=== PATIENT | male | born 1960 | race Caucasian/White ===

== ENCOUNTER → 2018-04-09 | Day surgery (SDC) | payer SELFPAY ==
[~2018-04-09] MED LIST: ATROPINE SULFATE 0.1 MG/ML 10ML SYR ONE; HEPARIN SOD (PORCINE) 1000 UNIT/ML 30ML ONE; HEPARIN SOD/SOD CHLORIDE 2,000 ML ONE; IOPAMIDOL 370 MG/ML 200 ML INFUS..BTL INJ ONE; LIDOCAINE HCL 2% LOCAL 20 ML VIAL ONE; NITROGLYCERIN/D5W 200 MCG/ML 250 ML ONE; SODIUM CHLORIDE 0.9% 1000ML 1,000 ML ONE
[2018-04-09 18:57] LABS: BASOPHILS % 0.6 % (0.0-1.0); EOSINOPHILS # (AUTO) 0.1 (0.0-0.4); EOSINOPHILS % 1.2 % (0.0-6.0); HEMATOCRIT 40.9 % (38.2-49.6); HEMOGLOBIN 13.6 g/dL (14.0-18.0); LYMPHOCYTES # (AUTO) 2.3 (1.0-3.2); LYMPHOCYTES % 33.3 % (18.0-39.1); MEAN CORPUSCULAR HEMOGLOBIN 29.2 pg (28-32); MEAN CORPUSCULAR HGB CONC 33.3 g/dL (31-35); MEAN CORPUSCULAR VOLUME 87.8 fL (81-99); MONOCYTES # (AUTO) 0.6 (0.2-0.8); MONOCYTES % 8.7 % (4.4-11.3); NEUTROPHILS # (AUTO) 3.8 (2.1-6.9); NEUTROPHILS % 55.9 % (38.7-80.0); PLATELET COUNT 238 x10e3/uL (140-360); RED BLOOD COUNT 4.66 x10e6/uL (4.3-5.7); RED CELL DISTRIBUTION WIDTH 12.3 % (11.7-14.4)
[2018-04-09 19:09] LABS: INR 4.39; PROTHROMBIN TIME 39.4 seconds (11.9-14.5)
[2018-04-09 19:17] LABS: ANION GAP 13.6 mmol/L (8-16); BLOOD UREA NITROGEN 17 mg/dL (7-26); BUN/CREATININE RATIO 21 (6-25); CALCIUM 9.3 mg/dL (8.4-10.2); CARBON DIOXIDE 26 mmol/L (22-29); CHLORIDE 101 mmol/L (98-107); CHOL/HDL RATIO 3.4 (3.9-4.7); CHOLESTEROL 175 MD/DL (0-199); EST GLOMERULAR FILTRATION RATE > 60 ML/MIN (60-); GLUCOSE 86 mg/dL (74-118); HDL CHOLESTEROL 51 MG/DL (40-60); LDL CHOLESTEROL 106 MG/DL (60-130); POTASSIUM 3.6 mmol/L (3.5-5.1); SODIUM 137 mmol/L (136-145); TRIGLYCERIDES 92 MG/DL (0-149)
--- NOTE | 2018-04-09 19:29 | History and Physical ---
CHIEF COMPLAINT: Crescendo chest pain and palpitations. 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 At different various times on aspirin 325 mg daily, not on other thrombolic preventive medications, per his report. He has noted lately episodes of increasing frequency, duration and intensity of chest discomfort, which is elicited by emotional stress as well as physical exertion. At times this has been related with episodes of palpitations, and he himself documented episodes of atrial fibrillation at the time. He has noted symptoms to worsen within the last 2 weeks and presents for evaluation of his unstable symptoms. Currently he is chest pain free and on EKG in sinus rhythm, nonspecific repolarization abnormalities observed. REVIEW OF SYSTEMS: Twelve systems reviewed and negative except for as noted above. ALLERGIES: NO KNOWN DRUG ALLERGIES. PAST MEDICAL HISTORY: Hypertension and paroxysmal atrial fibrillation reported. SOCIAL HISTORY: Negative for smoking, alcohol or drugs. FAMILY HISTORY: Noncontributory. He has good family support. PHYSICAL EXAMINATION VITAL SIGNS: Heart rate 54, on telemetry in sinus rhythm, blood pressure 143/79, O2 sat 99% on room air. Respiratory rate 18. GENERAL: In no acute distress, alert, active. NECK: No JVD, no carotid bruits. CHEST: Clear to auscultation. CARDIOVASCULAR: Regular rate and rhythm. Normal S1 and S2. No S3, no S4. No murmurs or rubs. ABDOMEN: Soft and nontender, nondistended. EXTREMITIES: No cyanosis, clubbing or edema. Normal Alek's test. Palpable 2+ pulses to bilateral lower extremities. MEDICATIONS: Reviewed. STUDIES: Discussed per report, recent lab work within one year was unremarkable. ASSESSMENT 1. Unstable angina. 2. Paroxysmal atrial fibrillation. 3. Hypertension. RECOMMENDATIONS: Discussed indications, alternatives, risks and benefits for coronary angiography and possible coronary intervention. Alternatives discussed included absolute myocardial perfusion PET scan versus SPECT myocardial perfusion stress test. Given unstable crescendo symptoms, Marcio prefers to proceed with coronary angiography. Will schedule expeditedly. Further recommendations to follow. Job#: [id number]
[2018-04-09 19:41] LABS: INR 1.16; PROTHROMBIN TIME 13.9 seconds (11.9-14.5)
[2018-04-09 19:48] LABS: BILIRUBIN,DIRECT 0.4 mg/dL (0.0-0.5)
[2018-04-09 19:50] VITALS: BP 145/81
[2018-04-09 19:55] VITALS: BP 146/76
[2018-04-09 20:08] LABS: THYROID STIMULATING HORMONE 0.924 uIU/mL (0.350-4.940)
[2018-04-09 20:10] VITALS: BP 127/80
[2018-04-09 20:25] VITALS: BP 134/86
[2018-04-09 20:35] VITALS: BP 133/76
--- NOTE | 2018-04-10 00:35 | Discharge Summary ---
DATE OF SERVICE: April 09, 2018 ADMITTING DIAGNOSES: 1. Unstable angina. 2. Reported history of paroxysmal atrial fibrillation. 3. Hypertension. DISCHARGE DIAGNOSES: Atypical chest pain and palpitations in the setting of reported atrial fibrillation and borderline blood pressure reads with no significant obstructive coronary artery disease on catheterization. CONDITION UPON DISCHARGE: Fair, improved. Discharged to home for self care. Restrictions, post cath site precautions discussed. MEDICATIONS UPON DISCHARGE: Please see medication reconciliation form. For medications at home, please see medication reconciliation form, which includes: 1. Metoprolol succinate 25 mg tablet, half a tablet every day. 2. Aspirin 325 mg daily. 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 Cardiac catheterization was remarkable for no significant obstructive coronary artery disease, preserved left ventricular systolic function, and no gradient across the aortic valve. He remained in normal sinus rhythm throughout the study. He reports, however, prior episodes of paroxysmal atrial fibrillation, which he has noted on previous telemetry strips, for which he is taking aspirin 325 mg daily. He reports systolic blood pressure mainly in the 120s to low 130s, while in the hospital blood pressure was in the 130s to 140s, at home blood pressure log has been discussed and advised. Recommendations as outpatient include obtain echocardiogram, obtain Holter or laboratory monitor for further evaluation. Resting heart rate in the low 60s to high 50s, however, does go up with activity. Discussed alternatives for management of confirmed atrial fibrillation, consider PVI versus antiarrhythmics. Start with low-dose beta yudith. Advise on echo. Labs ordered and discussed. Follow up in office in 4 weeks. EDSON ULRICH MD Job#: [id number] DR MCCORMACK
== END | disposition home or self-care (01) ==
LOC: CATH LAB 17:43
PROVIDERS: ATTEND Internal Medicine Cardiovascular Disease
DX: I20.0 Unstable angina (principal); I48.0 Paroxysmal atrial fibrillation; I10 Essential (primary) hypertension; Z79.82 Long term (current) use of aspirin
CPT/HCPCS: 36415; 80048; 80061; 80076; 83036; 84443; 85025; 85610; 93458; C1769; C1887; J1644; J2001; J7030; Q9967

== ENCOUNTER → 2020-10-16 | Outpatient (CLI) | payer OTHER ==
[~2020-10-16] MED LIST changes: -ATROPINE SULFATE 0.1 MG/ML 10ML SYR ONE; +COVID-19 VACC, MRNA(MODERNA)/PF 100 MCG/0.5 ML VIAL IM ONE; -HEPARIN SOD (PORCINE) 1000 UNIT/ML 30ML ONE; -HEPARIN SOD/SOD CHLORIDE 2,000 ML ONE; -IOPAMIDOL 370 MG/ML 200 ML INFUS..BTL INJ ONE; -LIDOCAINE HCL 2% LOCAL 20 ML VIAL ONE; -NITROGLYCERIN/D5W 200 MCG/ML 250 ML ONE; -SODIUM CHLORIDE 0.9% 1000ML 1,000 ML ONE
== END ==
LOC: VACCPMC 17:00
DX: Z23 Encounter for immunization (principal); Z20.828 Contact with and (suspected) exposure to other viral communicable diseases

== ENCOUNTER → 2020-11-19 | Outpatient (CLI) | payer OTHER | LOC: VACCPMC 11:35 | DX: Z23 Encounter for immunization (principal); Z20.822 Contact with and (suspected) exposure to COVID-19 ==

== ENCOUNTER → 2024-08-19 | Day surgery (SDC) | payer BC ==
[~2024-08-19] MED LIST changes: +ACETAMINOPHEN 1000 MG/100 ML 100 ML IV ONE; +BUPIVACAINE HCL 0.5% INJ 30 ML VIAL INJ ONE; -COVID-19 VACC, MRNA(MODERNA)/PF 100 MCG/0.5 ML VIAL IM ONE; +HYDROCODON-ACE1 EA11 PO; +METOPROLOL SUCC25 MG PO; +MUPIROCIN 2% OINT 22 GM TUBE ONE
[2024-08-19] MEDS: LACTATED RINGER'S 1,000 ML ONE (06:45)
[2024-08-19 09:01] VITALS: TEMP 97
[2024-08-19] MEDS: HYDROCODONE/APAP 7.5MG-325MG 1 EA TAB ONE (09:50)
[2024-08-19 10:00] VITALS: BP 145/86; PULSE 58; RESP 16; O2SAT 100
== END | disposition home or self-care (01) ==
LOC: OR 05:59
PROVIDERS: ATTEND Plastic Surgery
DX: M72.0 Palmar fascial fibromatosis [Dupuytren] (principal); R00.1 Bradycardia, unspecified
CPT/HCPCS: 26123; 26125 ×2; 88304; J0131; J7121